=== PATIENT | female | born 1985 | race Caucasian/White ===

== ENCOUNTER 2018-11-11 16:26 | Emergency (ER) | payer MEDICAID, MEDICARE ==
[~2018-11-11] VITALS: Ht 162.6 cm; Wt 68.4 kg
[2018-11-11 16:46] VITALS: BP 122/84
[2018-11-11 17:46] LABS: HCG UR SG 1.024 (1.003-1.030)
== END 2018-11-11 18:14 | disposition home or self-care (01) ==
LOC: ED 18:00
DX: J06.9 Acute upper respiratory infection, unspecified (principal)
CPT/HCPCS: 71046; 81025; 99284

== ENCOUNTER 2019-01-07 08:35 | Emergency (ER) | payer MEDICARE ==
[~2019-01-07] VITALS: Ht 160 cm; Wt 68.5 kg
[2019-01-07 08:50] VITALS: BP 124/88
--- NOTE | 2019-01-07 10:15 | NUR ---
CALLED FOR ROOM, NO ANSWER.
--- NOTE | 2019-01-07 10:26 | NUR ---
CALLED FOR ROOM, NO ANSWER.
--- NOTE | 2019-01-07 10:52 | NUR ---
CALLED FOR ROOM, NO ANSWER.
== END 2019-01-07 10:53 | disposition left against medical advice (07) ==
LOC: ED 10:47
DX: Z53.21 Procedure and treatment not carried out due to patient leaving prior to being seen by health care provider (principal)